=== PATIENT | female | born 1985 | race Caucasian/White ===

== ENCOUNTER → 2019-10-15 17:17 | Outpatient (CLI) | payer BC, SELFPAY | PROVIDERS: Visit Provider Physician Assistant | DX: N39.0 Urinary tract infection, site not specified (principal); M54.9 Dorsalgia, unspecified | CPT/HCPCS: 87086; 87088; 87186 ==

== ENCOUNTER → 2019-12-16 17:00 | Outpatient (CLI) | payer BC, SELFPAY ==
[2019-12-16 17:43] LABS: Alanine Aminotransferase 29 U/L (12-78); Albumin Level 4.6 g/dl (3.5-5.0); Albumin/Globulin Ratio 1.4 (1.1-1.8); Alkaline Phosphatase 53 U/L (38-126); Anion Gap 12.3 mEq/L (5-15); Aspartate Amino Transferase 38 U/L (14-36); Bilirubin,Total 0.4 mg/dl (0.2-1.3); Blood Urea Nitrogen 13 mg/dl (7-17); Calcium 10.1 mg/dl (8.4-10.2); Carbon Dioxide 27 mmol/L (22.0-30.0); Chloride 104 mmol/L (98-107); Estimated Glomerular Filt Rate 115 ml/min (>60); GFR (African American) 139 ML/MIN (>60); Globulin 3.3 g/dL (1.3-3.2); Glucose 68 mg/dl (74-100); Potassium 4.3 mmoL/L (3.5-5.1); Sodium 139 mmol/L (136-145); Total Protein,Serum 7.9 g/dl (6.3-8.2)
[2019-12-18 05:31] LABS: HIV Screen 4th Generation wRfx Non Reactive (Non Reactive); Hep A Ab, IgM Negative (Negative); Hep A Ab, Total Positive (Negative); Hep B Core Ab, Total Negative (Negative)
[2019-12-18 23:10] LABS: Hep B Surface Ab, Qual Reactive (.); Hepatitis B Surface Antigen Negative (Negative)
[2019-12-29 19:12] LABS: HCV Genotype Charge YES; Hepatitis C Genotype 1a (.)
== END ==
PROVIDERS: Visit Provider Nurse Practitioner Family
DX: N39.0 Urinary tract infection, site not specified (principal); B19.20 Unspecified viral hepatitis C without hepatic coma
CPT/HCPCS: 80053; 86703; 86704; 86706; 86708; 87086; 87340; 87522; 87902; G0432

== ENCOUNTER → 2020-01-03 12:17 | Outpatient (CLI) | payer BC, SELFPAY ==
[2020-01-03 12:35] LABS: Basophils % 0.6 % (0.1-2.0); Eosinophils % 0.8 % (0.1-12.0); Hematocrit 44.6 % (37.0-47.0); Hemoglobin 15.1 g/dL (12.2-16.2); Lymphocytes # 1.8 K/mm3 (0.7-4.5); Lymphocytes % 36.9 % (10-50); Mean Corpuscular HGB Conc 33.8 g/dL (31.8-35.4); Mean Corpuscular Hemoglobin 31.9 pg (27.0-31.2); Mean Corpuscular Volume 94.5 fl (81-99); Mean Platelet Volume 8.2 fl (7.4-10.4); Monocytes # 0.3 K/mm3 (0.1-1.0); Monocytes % 5.7 % (1.7-9.3); Neutrophils # 2.7 K/mm3 (1.8-7.8); Neutrophils % 56.1 % (37.0-80.0); Platelet Count 240 K/mm3 (142-424); Red Blood Count 4.72 M/mm3 (4.20-5.40); Red Cell Distribution Width 12.8 % (11.5-17.5); White Blood Count 4.9 K/mm3 (4.8-10.8)
[2020-01-03 12:36] LABS: Urine Pregnancy, HCG Qual. Negative (Negative)
[2020-01-03 12:43] LABS: Prothrombin Time 10.4 seconds (9.4-11.8)
== END ==
PROVIDERS: Visit Provider Nurse Practitioner Family
DX: B19.20 Unspecified viral hepatitis C without hepatic coma (principal)
CPT/HCPCS: 36415; 81025; 85025; 85610

== ENCOUNTER → 2020-01-16 16:18 | Outpatient (CLI) | payer BC, SELFPAY | PROVIDERS: Visit Provider Physician Assistant | DX: R30.9 Painful micturition, unspecified (principal) | CPT/HCPCS: 87086; 87088; 87186 ==

== ENCOUNTER → 2020-01-28 14:06 | Outpatient (CLI) | payer BC, SELFPAY | PROVIDERS: Visit Provider Urology | DX: N39.0 Urinary tract infection, site not specified (principal) | CPT/HCPCS: 87086 ==

== ENCOUNTER → 2020-03-05 14:35 | Outpatient (CLI) | payer BC, SELFPAY ==
[2020-03-05 14:48] LABS: HCG Qualitative, Serum Positive (Negative)
== END ==
PROVIDERS: Visit Provider Nurse Practitioner Family
DX: N92.6 Irregular menstruation, unspecified (principal); R53.83 Other fatigue
CPT/HCPCS: 84703

== ENCOUNTER → 2020-03-06 12:17 | Outpatient (CLI) | payer BC, SELFPAY ==
[2020-03-06 14:01] LABS: HCG,Quantitative 58 mIU/ml (0-5.42)
== END ==
PROVIDERS: Visit Provider Obstetrics & Gynecology
DX: Z32.00 Encounter for pregnancy test, result unknown (principal)
CPT/HCPCS: 36415; 84702

== ENCOUNTER 2020-03-23 16:04 | Emergency (ER) | payer BC, SELFPAY ==
[2020-03-23 16:20] VITALS: BP 123/70; PULSE 73; RESP 18; TEMP 37.3; O2SAT 98; BMI 25.8
[2020-03-23 16:31] VITALS: BMI 25.8
--- NOTE | 2020-03-23 16:36 | HMH.EDPREG ---
ED Disposition Clinical Impression: Vaginal bleeding Disposition: Home, Self-Care Condition on Discharge: Good Instructions: DI for Vaginal Bleeding Additional Instructions: Please follow-up on Monday for serum hCG outpatient. If this continues or worsens please return to the emergency department. Otherwise, please make an appointment with [facility]. Referrals: Aravind Ren MD [Primary Care Provider] - - Critical Care Critical Care Time: No Attestation: On 03/23/20, the high probability of a clinically significant, sudden or life threatening deterioration of the following system(s) required my full and direct attention, intervention and personal management. The time I documented below is in addition to time spent performing reported procedures but includes the following listed in this critical care notation. Medical Decision Making - Medical Records Medical records reviewed: Yes: I reviewed the patient's medical records. - Naldo Inquiry Pt receiving controlled substance: No - Lab Data Lab results reviewed: Yes: I reviewed the patient's lab results. Orders (Tests/Meds): ORDERS Category Date Time Status Complete Blood Count Auto Diff Stat Lab 03/23/20 16:31 Ordered Comprehensive Metabolic Panel Stat Lab 03/23/20 16:31 Ordered HCG,Quantitative Stat Lab 03/23/20 16:31 Ordered Urinalysis and Microscopic Stat Lab 03/23/20 16:31 Ordered Urine , HCG Qual. Stat Lab 03/23/20 16:31 Ordered HPI - General Chief complaint: Vaginal Bleeding Stated complaint: 4 wk preg with bleeding,little cramping Time Seen by Provider: 03/23/20 16:36 - History of Present Illness HPI Narrative: 35-year-old female presents a approximately at 4 weeks with some vaginal spotting. She states this started today and she has not even had to use a pad. She states that it just light and she was just worried and that is why she presented here to the ED. She states that she has absolutely no abdominal pain or suprapubic abdominal pain. And she denies any other acute symptoms. She has a healthy 16-year-old child at home.Patient denies any recent cough or shortness of breath, patient denies any sore throat or headache, patient denies any loss of taste or smell, patient denies any malaise or fatigue, patient denies any abdominal pain nausea vomiting or diarrhea. - Related Data Home Medications Medication Instructions Recorded Confirmed buprenorphine 8 mg-naloxone 2 mg SUBLINGUAL DAILY tab 12/16/19 03/05/20 sublingual tablet Allergies Allergy/AdvReac Type Severity Reaction Status Date / Time No Known Allergies Allergy Verified 03/05/20 10:44 [facility] History - Hepatitis A Screen Attestation statement:: This patient has been screened for Hepatitis A risk factors. I have reviewed the patient's past medical history: Yes Medical History: Reports:: Anxiety, Hepatitis, Seizures Other Medical History: Reports: Anemia, Liver Disease Other Surgeries: Yes: No Previous Surgery, Other Amputation: No Fractures: No Comment: LEEP 2003 AND 2009 - Social History Smoking Status: Current every day smoker Tobacco Type: cigarettes # Packs/Day (cigarettes): 1 #Yrs smoked (if former smoker): 10 Alcohol Intake: never Substance Use Type: former substance user, heroin, methamphetamine Occupational Status: employed - Psychiatric History Pschychiatric History:: Reports:: Anxiety Family Hx:: Cancer, Asthma, Hyperlipidemia, Diabetes, Heart Attack, Hypertension, Kidney Disease ROS Obtained: Yes All systems reviewed & no additional complaints - Constitutional Constitutional: Reports system reviewed and no additional complaints, except as docu - Eyes Eyes: Reports system reviewed and no additional complaints, except as docu - ENT Ears, Nose, Mouth, and Throat: Reports system reviewed and no additional complaints, except as docu - Cardiovascular Cardiovascular: Reports system reviewed and no a
[2020-03-23 16:44] LABS: Microscopic, Urine URINE MICROSCOPIC (MICROSCOPIC)
[2020-03-23 16:47] LABS: Appearance,Urine CLEAR (Clear); Blood, Urine 2+ (Negative); Color,Urine YELLOW (Yellow); Glucose,Urine (UA) Negative (Negative); Ketones,Urine TRACE (Negative); Leukocyte Esterase,Urine Negative (Negative); Nitrate,Urine Negative (Negative); Protein,Urine Negative (Negative); Specific Gravity, Urine >= 1.030 (1.005-1.030); Urobilinogen,Urine 0.2 EU/dl (0.2)
[2020-03-23 16:51] LABS: Bilirubin,Urine Negative (Negative); WBC,Urine Occasional #/hpf (0-3)
[2020-03-23 16:51] LABS: Basophils % 0.3 % (0.1-2.0); Eosinophils # 0.1 K/mm3 (0.0-0.4); Eosinophils % 0.9 % (0.1-12.0); Hematocrit 37.5 % (37.0-47.0); Hemoglobin 13.1 g/dL (12.2-16.2); Lymphocytes # 2.7 K/mm3 (0.7-4.5); Lymphocytes % 39.3 % (10-50); Mean Corpuscular HGB Conc 34.9 g/dL (31.8-35.4); Mean Corpuscular Volume 94.5 fl (81-99); Mean Platelet Volume 8.2 fl (7.4-10.4); Monocytes # 0.4 K/mm3 (0.1-1.0); Monocytes % 6.4 % (1.7-9.3); Neutrophils # 3.6 K/mm3 (1.8-7.8); Neutrophils % 53.2 % (37.0-80.0); Platelet Count 210 K/mm3 (142-424); Red Blood Count 3.97 M/mm3 (4.20-5.40); Red Cell Distribution Width 13.4 % (11.5-17.5); White Blood Count 6.7 K/mm3 (4.8-10.8)
[2020-03-23 16:52] LABS: Bacteria,Urine Trace /lpf; RBC,Urine Occasional #/hpf (0-3)
[2020-03-23 16:52] LABS: Urine Pregnancy, HCG Qual. Positive (Negative)
[2020-03-23 16:56] LABS: Chloride 105 mmol/L (98-107)
[2020-03-23 16:57] LABS: Potassium 3.5 mmoL/L (3.5-5.1); Sodium 138 mmol/L (136-145)
[2020-03-23 16:59] LABS: Alanine Aminotransferase 35 U/L (12-78); Aspartate Amino Transferase 37 U/L (14-36); Blood Urea Nitrogen 14 mg/dl (7-17); Creatinine Clearance Estimated 182 mL/min (50-200); Estimated Glomerular Filt Rate 141 ml/min (>60); GFR (African American) 171 ML/MIN (>60)
[2020-03-23 17:00] LABS: Albumin/Globulin Ratio 1.3 (1.1-1.8); Alkaline Phosphatase 46 U/L (38-126); Anion Gap 10.5 mEq/L (5-15); Bilirubin,Total 0.5 mg/dl (0.2-1.3); Calcium 8.9 mg/dl (8.4-10.2); Carbon Dioxide 26 mmol/L (22.0-30.0); Globulin 3.1 g/dL (1.3-3.2); Glucose 117 mg/dl (74-100); Total Protein,Serum 7.1 g/dl (6.3-8.2)
[2020-03-23 17:17] LABS: HCG,Quantitative 1395 mIU/ml (0-5.42)
[2020-03-23 17:36] VITALS: BP 123/85; PULSE 80; RESP 20; TEMP 36.8; O2SAT 98
== END 2020-03-23 17:37 | disposition home or self-care (01) ==
PROVIDERS: Emergency Provider Family Medicine; PCP Emergency Medicine
DX: O20.8 Other hemorrhage in early pregnancy (principal); Z3A.01 Less than 8 weeks gestation of pregnancy; B19.20 Unspecified viral hepatitis C without hepatic coma; F31.9 Bipolar disorder, unspecified; F17.210 Nicotine dependence, cigarettes, uncomplicated
CPT/HCPCS: 80053; 81001; 81025; 84702; 85025; 99282

== ENCOUNTER → 2020-03-25 10:18 | Outpatient (CLI) | payer BC, SELFPAY ==
[2020-03-25 11:50] LABS: HCG,Quantitative 1641 mIU/ml (0-5.42)
== END ==
PROVIDERS: PCP Emergency Medicine; Visit Provider Family Medicine
DX: O02.1 Missed abortion (principal)
CPT/HCPCS: 36415; 84702

== ENCOUNTER → 2020-03-30 15:06 | Outpatient (CLI) | payer BC, SELFPAY ==
[2020-03-30 16:34] LABS: HCG,Quantitative 1444 mIU/ml (0-5.42)
== END ==
PROVIDERS: Visit Provider Obstetrics & Gynecology
DX: Z32.00 Encounter for pregnancy test, result unknown (principal)
CPT/HCPCS: 36415; 84702

== ENCOUNTER → 2020-04-03 11:28 | Outpatient (CLI) | payer BC, SELFPAY ==
[2020-04-03 13:28] LABS: HCG,Quantitative 1430 mIU/ml (0-5.42)
== END ==
PROVIDERS: Visit Provider Obstetrics & Gynecology
DX: O20.0 Threatened abortion (principal)
CPT/HCPCS: 36415; 84702

== ENCOUNTER → 2020-04-06 12:43 | Outpatient (CLI) | payer BC, SELFPAY ==
--- NOTE | 2020-04-06 12:43 | US_ITS ---
PROCEDURE: US TRANSVAGINAL CLINICAL INDICATION: US T/V-f/u on miscarriage, heavy bleeding COMPARISON: No exams were available for comparison FINDINGS: UTERUS: 8cm x 5cmx 4cm with a combined endometrial thickness of 2.6mm LEFT OVARY: [id number] with a volume of 6.8ml. RIGHT OVARY: [id number] with a volume of 8.7ml. There is no evidence of retained products of conception. No cul-de-sac fluid evident. IMPRESSION: Unremarkable pelvic ultrasound Dictated by: Nitin Doty MD 04/06/2020 13:57 Electronically signed by Nitin Doty MD in [facility] 04/06/2020 13:57
== END ==
PROVIDERS: PCP Emergency Medicine; Visit Provider Obstetrics & Gynecology
DX: N93.9 Abnormal uterine and vaginal bleeding, unspecified (principal); O02.1 Missed abortion
CPT/HCPCS: 76830

== ENCOUNTER → 2020-04-07 09:45 | Outpatient (CLI) | payer BC, SELFPAY ==
[2020-04-07 10:04] LABS: Basophils % 0.3 % (0.1-2.0); Eosinophils # 0.1 K/mm3 (0.0-0.4); Eosinophils % 1.5 % (0.1-12.0); Hematocrit 41.2 % (37.0-47.0); Hemoglobin 14.2 g/dL (12.2-16.2); Lymphocytes # 2.5 K/mm3 (0.7-4.5); Lymphocytes % 46.8 % (10-50); Mean Corpuscular HGB Conc 34.5 g/dL (31.8-35.4); Mean Corpuscular Hemoglobin 33.5 pg (27.0-31.2); Mean Platelet Volume 8.2 fl (7.4-10.4); Monocytes # 0.4 K/mm3 (0.1-1.0); Monocytes % 7.2 % (1.7-9.3); Neutrophils # 2.3 K/mm3 (1.8-7.8); Neutrophils % 44.1 % (37.0-80.0); Platelet Count 218 K/mm3 (142-424); Red Blood Count 4.25 M/mm3 (4.20-5.40); Red Cell Distribution Width 13.4 % (11.5-17.5); White Blood Count 5.3 K/mm3 (4.8-10.8)
[2020-04-07 10:14] LABS: Alanine Aminotransferase 30 U/L (12-78); Albumin Level 4.2 g/dl (3.5-5.0); Albumin/Globulin Ratio 1.2 (1.1-1.8); Alkaline Phosphatase 61 U/L (38-126); Aspartate Amino Transferase 33 U/L (14-36); Bilirubin,Total 0.6 mg/dl (0.2-1.3); Blood Urea Nitrogen 15 mg/dl (7-17); Calcium 9.2 mg/dl (8.4-10.2); Carbon Dioxide 28 mmol/L (22.0-30.0); Chloride 106 mmol/L (98-107); Estimated Glomerular Filt Rate 114 ml/min (>60); GFR (African American) 138 ML/MIN (>60); Globulin 3.4 g/dL (1.3-3.2); Glucose 92 mg/dl (74-100); Sodium 141 mmol/L (136-145); Total Protein,Serum 7.6 g/dl (6.3-8.2)
[2020-04-07 10:31] LABS: HCG,Quantitative 83 mIU/ml (0-5.42)
== END ==
PROVIDERS: Visit Provider Obstetrics & Gynecology
DX: O02.1 Missed abortion (principal)
CPT/HCPCS: 36415; 80053; 84702; 85025

== ENCOUNTER → 2020-05-01 17:01 | Outpatient (CLI) | payer BC, SELFPAY ==
[2020-05-01 19:04] LABS: HCG,Quantitative 80 mIU/ml (0-5.42)
== END ==
PROVIDERS: Visit Provider Obstetrics & Gynecology
DX: Z34.90 Encounter for supervision of normal pregnancy, unspecified, unspecified trimester (principal)
CPT/HCPCS: 36415; 84702

== ENCOUNTER → 2020-05-04 12:05 | Outpatient (CLI) | payer BC, SELFPAY ==
[2020-05-04 13:33] LABS: HCG,Quantitative 290 mIU/ml (0-5.42)
== END ==
PROVIDERS: Visit Provider Obstetrics & Gynecology
DX: Z34.90 Encounter for supervision of normal pregnancy, unspecified, unspecified trimester (principal)
CPT/HCPCS: 36415; 84702

== ENCOUNTER → 2020-05-26 13:40 | Outpatient (CLI) | payer BC, SELFPAY ==
--- NOTE | 2020-05-26 13:47 | US_ITS ---
PROCEDURE: US OB TRANSVAGINAL CLINICAL INDICATION: US OB Dates COMPARISON: US US TRANSVAGINAL from 04/06/2020 FINDINGS: An intrauterine gestational sac is present with a pole with a crown-rump length of 1.14cm correlating to gestational age of 7weeks 3days. heart tones are present with an FHR of 139bpm. Yolk sac is noted. IMPRESSION: Live intrauterine gestation at 7 weeks 3 days Estimated due date by Ultrasound is 01/09/2021 Dictated by: Nitin Doty MD 05/26/2020 16:16 Nitin Doty MD in [facility] 05/26/2020 16:16
== END ==
PROVIDERS: PCP Emergency Medicine; Visit Provider Obstetrics & Gynecology
DX: O26.841 Uterine size-date discrepancy, first trimester (principal)
CPT/HCPCS: 76817

== ENCOUNTER → 2020-05-29 11:13 | Outpatient (CLI) | payer BC, SELFPAY ==
[2020-05-29 12:21] LABS: Basophils % 0.2 % (0.1-2.0); Eosinophils % 0.4 % (0.1-12.0); Hematocrit 41.9 % (37.0-47.0); Hemoglobin 14.7 g/dL (12.2-16.2); Lymphocytes # 2.5 K/mm3 (0.7-4.5); Lymphocytes % 28.1 % (10-50); Mean Corpuscular HGB Conc 35.1 g/dL (31.8-35.4); Mean Corpuscular Hemoglobin 32.9 pg (27.0-31.2); Mean Corpuscular Volume 93.6 fl (81-99); Mean Platelet Volume 8.8 fl (7.4-10.4); Monocytes # 0.5 K/mm3 (0.1-1.0); Monocytes % 5.2 % (1.7-9.3); Neutrophils # 5.9 K/mm3 (1.8-7.8); Neutrophils % 66.1 % (37.0-80.0); Platelet Count 235 K/mm3 (142-424); Red Blood Count 4.47 M/mm3 (4.20-5.40); Red Cell Distribution Width 12.8 % (11.5-17.5); White Blood Count 8.9 K/mm3 (4.8-10.8)
[2020-05-29 17:54] LABS: Benzodiazepines Screen,Urine Negative ng/ml (<200)
[2020-05-29 17:55] LABS: Amphetamine/Metha Screen,Urine Negative ng/ml (<1000); Barbiturates Screen,Urine Negative ng/ml (<200)
[2020-05-29 17:56] LABS: Cannabinoid Screen,Urine Negative ng/ml (<50)
[2020-05-29 17:57] LABS: Cocaine Screen,Urine Negative ng/ml (<300); Methadone Screen,Urine Negative ng/ml (<300)
[2020-05-29 17:58] LABS: Opiate Screen,Urine Negative ng/ml (<300)
[2020-05-29 17:59] LABS: Phencyclidine Screen,Urine Negative ng/ml (<25)
[2020-05-30 05:25] LABS: HIV Screen 4th Generation wRfx Non Reactive (Non Reactive)
[2020-05-30 09:24] LABS: Hepatitis B Surface Antigen Negative (Negative); Hepatitis C Antibody >11.0 s/co ratio (0.0-0.9); Rubella Antibodies, IgG 4.28 index (Immune >0.99)
[2020-05-30 10:48] LABS: Rapid Plasma Reagin Ab Titer Non Reactive (NonRea<1:1)
== END ==
PROVIDERS: Visit Provider Obstetrics & Gynecology
DX: Z34.90 Encounter for supervision of normal pregnancy, unspecified, unspecified trimester (principal)
CPT/HCPCS: 36415; 80305; 80348; 85025; 86592; 86703; 86762; 86850; 87340; 87380; G0432

== ENCOUNTER → 2020-07-06 11:18 | Outpatient (CLI) | payer BC, SELFPAY ==
[2020-07-07 13:48] LABS: Covid-19 Nasal PCR Sendout Lex Not Detected
== END ==
PROVIDERS: PCP Physician Assistant; Visit Provider Physician Assistant
DX: Z03.818 Encounter for observation for suspected exposure to other biological agents ruled out (principal)
CPT/HCPCS: U0004

== ENCOUNTER → 2020-08-25 12:16 | Outpatient (CLI) | payer BC, SELFPAY ==
--- NOTE | 2020-08-25 12:16 | US_ITS ---
PROCEDURE: US OB /MATERNAL DETAIL CLINICAL INDICATION: US OB Complete Anatomy exam COMPARISON: US US OB TRANSVAGINAL from 05/26/2020 FINDINGS: There is a single live fetus which is in cephalic presentation. heart and body motion is noted. The cervix is closed and measures 3 cm. The placenta is anterior and grade 1. Complete survey performed and was unremarkable on the submitted images as in PACS. No discrete anomalies identified on survey imaging by technologist. Active fetus. Three-vessel cord with satisfactory umbilical cord insertion. 4- chamber heart noted. Survey of brain & ventricles Unremarkable. Face and neck survey unremarkable. Diaphragm and chest views unremarkable. Abdomen: Both kidneys noted and unremarkable. Stomach noted and satisfactory. Spine: Survey of the spine satisfactory with no anomalies identified nor imaged. Both arms and legs noted. Amniotic Fluid: Adequate. Maternal adnexa: No significant findings. Measurements: Average ultrasound age 20weeks 5days. Gestational Age 20weeks 5days Estimated due date by ultrasound age 0401/07/2021. Estimated weight 365g BPD = 21weeks OFD = 20 weeks 5 days HC = 20weeks 1day AC = 21weeks FL = 20weeks 3days Growth Percentile= 55% Heart Rate = 133bpm Cerebellum = 20weeks 4days Humerus = 20weeks 4days HC/AC is 1.11 CI is 0.8 FL/BPD is 0.67 FL/AC is 0.21 IMPRESSION: Live IUP at 20 weeks 5 days. No obvious anomalies. Please see above for detail Dictated by: Nitin Doty MD 08/25/2020 18:03 Nitin Doty MD in [facility] 08/25/2020 18:03
== END ==
PROVIDERS: PCP Emergency Medicine; Visit Provider Obstetrics & Gynecology
DX: Z36.0 Encounter for antenatal screening for chromosomal anomalies (principal)
CPT/HCPCS: 76811

== ENCOUNTER → 2020-09-24 08:54 | Outpatient (CLI) | payer BC, SELFPAY ==
[2020-09-24 10:03] LABS: Glucose,Fasting 82 mg/dl (74-100)
[2020-11-09 14:58] LABS: Glucose 1 Hour 126 mg/dL (74-100)
== END ==
PROVIDERS: Visit Provider Obstetrics & Gynecology
DX: Z34.90 Encounter for supervision of normal pregnancy, unspecified, unspecified trimester (principal)
CPT/HCPCS: 36415; 82951

== ENCOUNTER → 2020-12-02 15:02 | Outpatient (CLI) | payer BC, SELFPAY ==
--- NOTE | 2020-12-02 15:02 | US_ITS ---
PROCEDURE: US OB FOLLOW UP CLINICAL INDICATION: US OB- Growth APOLINAR- SGA COMPARISON: US US OB /MATERNAL DETAIL from 08/25/2020 FINDINGS: There is a single live fetus which is in cephalic presentation. The placenta is anterior and grade 1. APOLINAR is normal at 14 cm. The cervix is closed at 3.9 cm. Measurements: Average ultrasound age 34weeks 6days. Gestational Age 34weeks 6days Estimated due date by ultrasound age 0401/07/2021. Estimated weight 2,457g BPD = 35weeks 4days OFD = HC = 34weeks 4days AC = 34weeks 3days FL = 34weeks 4days Growth Percentile= 44% Heart Rate = 119bpm Cerebellum = Humerus = HC/AC is 1.02 CI is 0.82 FL/BPD is 0.76 FL/AC is 0.22 IMPRESSION: Live IUP in cephalic presentation with an average ultrasound age of 34 weeks 6 days. Please see above for detail. Normal APOLINAR of 14 cm. No evidence of IUGR Dictated by: Nitin Doty MD 12/02/2020 18:15 Nitin Doty MD in [facility] 12/02/2020 18:15
== END ==
PROVIDERS: PCP Emergency Medicine; Visit Provider Obstetrics & Gynecology
DX: O36.5990 Maternal care for other known or suspected poor fetal growth, unspecified trimester, not applicable or unspecified (principal)
CPT/HCPCS: 76816

== ENCOUNTER → 2020-12-10 17:01 | Outpatient (CLI) | payer BC, SELFPAY | PROVIDERS: Visit Provider Obstetrics & Gynecology | DX: Z34.90 Encounter for supervision of normal pregnancy, unspecified, unspecified trimester (principal) | CPT/HCPCS: 86403 ==

== ENCOUNTER → 2020-12-31 09:02 | Outpatient (CLI) | payer BC, SELFPAY | PROVIDERS: PCP Emergency Medicine; Visit Provider Obstetrics & Gynecology | DX: Z01.812 Encounter for preprocedural laboratory examination (principal); Z20.822 Contact with and (suspected) exposure to COVID-19; U07.1 COVID-19 | CPT/HCPCS: U0003 ==

== ENCOUNTER 2021-01-01 04:49 | Inpatient (IN) | payer BC, SELFPAY ==
[2021-01-01 04:59] VITALS: BMI 30.2
[2021-01-01 05:50] VITALS: BP 111/59; PULSE 57; RESP 18
[2021-01-01 05:56] LABS: Microscopic, Urine URINE MICROSCOPIC (MICROSCOPIC)
[2021-01-01 06:02] LABS: Basophils % 0.2 % (0.1-2.0); Eosinophils % 0.6 % (0.1-12.0); Hematocrit 34.2 % (37.0-47.0); Hemoglobin 11.8 g/dL (12.2-16.2); Lymphocytes # 2.4 K/mm3 (0.7-4.5); Lymphocytes % 33.7 % (10-50); Mean Corpuscular HGB Conc 34.4 g/dL (31.8-35.4); Mean Corpuscular Hemoglobin 31.9 pg (27.0-31.2); Mean Corpuscular Volume 92.8 fl (81-99); Mean Platelet Volume 9.3 fl (7.4-10.4); Monocytes # 0.6 K/mm3 (0.1-1.0); Monocytes % 8.2 % (1.7-9.3); Neutrophils % 57.4 % (37.0-80.0); Platelet Count 206 K/mm3 (142-424); Red Blood Count 3.69 M/mm3 (4.20-5.40); Red Cell Distribution Width 13.3 % (11.5-17.5)
[2021-01-01 06:06] LABS: Appearance,Urine CLEAR (Clear); Bilirubin,Urine Negative (Negative); Blood, Urine TRACE-I (Negative); Color,Urine YELLOW (Yellow); Glucose,Urine (UA) Negative (Negative); Ketones,Urine Negative (Negative); Leukocyte Esterase,Urine 1+ (Negative); Nitrate,Urine Negative (Negative); PH,Urine 6.5 (5.0-8.5); Protein,Urine Negative (Negative); Urobilinogen,Urine 0.2 EU/dl (0.2)
[2021-01-01 06:18] LABS: Amphetamine/Metha Screen,Urine Negative ng/ml (<1000); Benzodiazepines Screen,Urine Negative ng/ml (<200)
[2021-01-01 06:19] LABS: Barbiturates Screen,Urine Negative ng/ml (<200); Cannabinoid Screen,Urine Negative ng/ml (<50)
[2021-01-01 06:20] LABS: Cocaine Screen,Urine Negative ng/ml (<300)
[2021-01-01 06:21] LABS: Methadone Screen,Urine Negative ng/ml (<300); Opiate Screen,Urine Negative ng/ml (<300)
[2021-01-01 06:22] LABS: Phencyclidine Screen,Urine Negative ng/ml (<25)
[2021-01-01 06:47] LABS: Bacteria,Urine 1+ /lpf; RBC,Urine Occasional #/hpf (0-3)
[2021-01-01 08:39] VITALS: BP 93/50; PULSE 53; RESP 18; TEMP 36.9; O2SAT 99
--- NOTE | 2021-01-01 11:24 | HMH.ANESCL ---
[facility] Anesthesia Checklist - Patient Identification Patient Identification: Arm Band - Structural Data Admitted From: Inpatient Planned Operative Procedure/s: Labor Epidural Consent for Planned Operative Procedure(s) Verified: Yes Verified Documents: Surgical Consent, History and Physical - NPO Status Verified Time NPO: 00:00 - Additional verifications Anesthesia Reactions: No - Airway Assessment C-Spine Mobility Assessed: Yes TMJ Mobility Assessed: Yes Dentition: Good Dentition - Neurological Assessment Level of Consciousness: Awake, Alert - Anesthesia Plan Anesthesia Risk discussed: Yes Anesthesia Plan: Verified ASA Class: II Anesthesia Type: Epidural [facility] History I have reviewed the patient's past medical history: Yes Medical History: Reports:: Anxiety, Hepatitis, Seizures Denies:: Diabetes Mellitus Type 1, Diabetes Mellitus Type 2 *Have you ever received a pneumonia vaccine?: No *Have you received a flu vaccine this season?: No Other Medical History: Reports: Anemia, Liver Disease Anesthesia experience/problems:: nac Other Surgeries: Yes: No Previous Surgery, Other. No: Amputation: No Fractures: No - *Social History Smoking Status: Former smoker Tobacco Type: cigarettes # Packs/Day (cigarettes): 1 #Yrs smoked (if former smoker): 10 Alcohol Intake: never Substance Use Type: former substance user *Occupational Status:: employed *Travel in the last 8 weeks: None - Psychiatric History Pschychiatric History:: Reports:: Anxiety Family Hx:: Cancer, Asthma, Hyperlipidemia, Diabetes, Heart Attack, Hypertension, Kidney Disease Para: 2
[2021-01-01 12:12] VITALS: BP 98/56; PULSE 54; RESP 17; TEMP 36.5
--- NOTE | 2021-01-01 12:49 | HMH.OBAPHP ---
OB - H&P: HPI Antepartum - History of Present Illness Chief complaint: induction of labor History of present illness: 35 yo @ 38 6/7 scheduled induction of labor for oligohydramnios irregular contractions; denies leakage of fluid or vaginal bleeding normal movement complicated by hepatitis C and chronic subutex maintenance Preadmission testing postitive covid 19 nasal swab, but she is not currently sick and is unaware of any exposure and/or illness - History of Present care: good care [facility] History I have reviewed the patient's past medical history: Yes Medical History: Reports:: Anxiety, Hepatitis, Seizures Denies:: Diabetes Mellitus Type 1, Diabetes Mellitus Type 2 *Have you ever received a pneumonia vaccine?: No *Have you received a flu vaccine this season?: No Other Medical History: Reports: Anemia, Liver Disease Anesthesia experience/problems:: nac Other Surgeries: Yes: No Previous Surgery, Other. No: Amputation: No Fractures: No - *Social History Smoking Status: Former smoker Tobacco Type: cigarettes # Packs/Day (cigarettes): 1 #Yrs smoked (if former smoker): 10 Alcohol Intake: never Substance Use Type: former substance user *Occupational Status:: employed *Travel in the last 8 weeks: None - Psychiatric History Pschychiatric History:: Reports:: Anxiety Family Hx:: Cancer, Asthma, Hyperlipidemia, Diabetes, Heart Attack, Hypertension, Kidney Disease Para: 2 Review of Systems - Review of Systems Review of systems:: pertinent systems reviewed and negative unless documented below - Constitutional Denies chills, Denies fever(s) - *Respiratory Denies cough, Denies shortness of breath - *Genitourinary Denies abnormal vaginal bleeding Meds Home Medications Medication Instructions Recorded Confirmed Type Pnv No.95/Ferrous Fum/Folic AC 1 each PO DAILY 01/01/21 01/01/21 History [ Caplet] buprenorphine HCL [Buprenorphine 16 mg PO DAILY 01/01/21 01/01/21 History HCl] Allergies Allergy/AdvReac Type Severity Reaction Status Date / Time No Known Allergies Allergy Verified 12/29/20 11:02 OB - H&P: Exam - Physical Exam Vital signs: Temp Pulse Resp BP Pulse Ox 97.7 F 54 L 17 98/56 L 99 01/01/21 12:12 01/01/21 12:12 01/01/21 12:12 01/01/21 12:12 01/01/21 08:39 - Constitutional no acute distress - Routine HEENT Exam Head: Present: normocephalic, atraumatic Eye: Absent: conjunctival icterus ENT: Present: mucous membranes moist - Routine Neck Exam Present: supple - Routine Chest/Breast/Axilla Exam Chest wall: Absent: tenderness - Routine Respiratory Exam Present: CTA bilaterally. Absent: respiratory distress - Routine Cardiovascular Exam Present: RRR - Routine Abdominal Exam Present: soft. Absent: tenderness, distended - Routine Exam Comments: cervix 3/80/-1 - Routine Extremities Exam Absent: edema - Routine Back/Spine/Pelvis Exam Back/Spine: Absent: CVA tenderness - Routine Skin Exam Absent: rash - Routine Neurological Exam Present: alert, oriented X3 - Routine Psychiatric Exam Present: normal affect OB - Results - Labs Labs: Short CBC 01/01/21 Range/Units 05:25 WBC 7.0 (4.8-10.8) K/mm3 Hgb 11.8 L (12.2-16.2) g/dL Hct 34.2 L (37.0-47.0) % Plt Count 206 (142-424) K/mm3 Urine 01/01/21 Range/Units 05:25 Urine Color Yellow (Yellow) Urine Appearance Clear (Clear) Urine pH 6.5 (5.0-8.5) Ur Specific [place] 1.020 (1.005-1.030) Urine Protein Negative (Negative) Urine Glucose (UA) Negative (Negative) OB - A/P Antepartum (1) 38 weeks gestation of Status: Acute (2) Oligohydramnios Status: Acute (3) complicated by subutex maintenance, antepartum Status: Acute (4) Hepatitis C Status: Acute (5) COVID-19 affecting in third trimester Status: Acute - A
--- NOTE | 2021-01-01 16:40 | HMH.DN ---
- Delivery Note Delivery Date:: 01/01/21 Delivery Time:: 15:40 Anesthesia Type: Epidural Was labor medically induced?: Yes Gestational age (weeks): 38 Infant delivered prior to 39 weeks?: Yes Justification for early elective delivery:: Oligohydraminos Gender: Male at 1 minute: 8 at 5 minutes: 9 Delivery Procedure:: Spontaneous vaginal delivery of liveborn male over intact perineum. Delivery uncomplicated No nuchal cord; no shoulder dystocia with delivery Infant placed in DAWIT with mother immediately after umbilical cord clamped/cut, with standard nursing assessment performed Infant Apgars: 8 & 9 Placenta spontaneously expressed and examined; noted to be complete/intact. Vulva, vagina, and cervix inspected; bilateral periurethral lacerations repaired for hemostasis EBL: 300 cc All sponge/needle/instrument counts correct at conclusion of procedure Disposition: Mom/baby stable to recovery in LDRP Laceration:: labial Placental Delivery Description: Spontaneous
[2021-01-01 16:49] VITALS: BP 123/62; PULSE 77; RESP 18; TEMP 37.1
[2021-01-01 20:04] VITALS: BP 126/59; PULSE 59; RESP 16; TEMP 37.4; O2SAT 99
[2021-01-02 00:35] VITALS: BP 102/57; PULSE 55; RESP 16; TEMP 36.9; O2SAT 98
[2021-01-02 04:46] VITALS: BP 146/78; PULSE 81; RESP 18; TEMP 36.7; O2SAT 100
[2021-01-02 06:51] LABS: Hematocrit 29.2 % (37.0-47.0); Hemoglobin 10.1 g/dL (12.2-16.2)
--- NOTE | 2021-01-02 09:28 | P.PN_ITS ---
Internal Medicine - PN: Subj *Date: 01/02/21 *Time: 09:28 (This is day #1. The patient is afebrile. Her vital signs are stable. Abdomen soft. Lochia normal. Uterine fundus involuting well. Hemoglobin 10.2 g, but clinically stable. She is Covid positive by testing and is being treated appropriately thereto.. She is known to be hepatitis C positive, and is also continuing on her Subutex. She is breast- feeding. Impression: Stable.) Exam Vital signs and Labs for Last 24 Hours: Temp Pulse Resp BP Pulse Ox 98.0 F 81 18 146/78 H 100 01/02/21 04:46 01/02/21 04:46 01/02/21 04:46 01/02/21 04:46 01/02/21 04:46 Laboratory Results - last 24 hr 01/02/21 06:10: Hgb 10.1 L, Hct 29.2 L I & O for Last 24 hours: Intake & Output 12/30/20 12/31/20 01/01/21 01/02/21 11:59 11:59 11:59 11:59 Weight 187 lb 0.008 oz Microbiology Reports for the Last 24 Hours: Microbiology 01/01/21 05:25 Urine,Clean Catch Urine Culture - Preliminary NO GROWTH AFTER 24 HOURS Assessment and Plan (1) 38 weeks gestation of Status: Resolved Category: Medical Code(s): Z3A.38 - 38 weeks gestation of (2) Oligohydramnios Status: Resolved Category: Medical Code(s): O41.00X0 - Oligohydramnios, unspecified trimester, not applicable or unspecified (3) complicated by subutex maintenance, antepartum Status: Resolved Category: Medical Code(s): O99.320 - Drug use complicating , unspecified trimester; F11.20 - Opioid dependence, uncomplicated (4) Hepatitis C Status: Acute Category: Medical Code(s): B19.20 - Unspecified viral hepatitis C without hepatic coma (5) COVID-19 affecting in third trimester Status: Resolved Category: Medical Code(s): O98.513 - Other viral diseases complicating , third trimester; U07.1 - COVID-19
[2021-01-02 20:08] VITALS: BP 119/59; PULSE 56; RESP 18; TEMP 36.7; O2SAT 97
[2021-01-03 01:30] VITALS: BP 137/64; PULSE 50; RESP 18; TEMP 36.9; O2SAT 99
--- NOTE | 2021-01-03 08:58 | HMH.ACPN2 ---
Internal Medicine - PN: Subj *Date: 01/03/21 *Time: 08:58 (This is day #2. The patient is afebrile. Her vital signs are stable. At times her heart rate has been somewhat low, but she has been clinically stable. Lochia normal. Uterine fundus involuting well. Nursing well. Impression: Stable. Probable discharge tomorrow.) Exam Vital signs and Labs for Last 24 Hours: Temp Pulse Resp BP Pulse Ox 98.5 F 50 L 18 137/64 99 01/03/21 01:30 01/03/21 01:30 01/03/21 01:30 01/03/21 01:30 01/03/21 01:30 I & O for Last 24 hours: Intake & Output 12/31/20 01/01/21 01/02/21 01/03/21 11:59 11:59 11:59 11:59 Weight 187 lb 0.008 oz Microbiology Reports for the Last 24 Hours: Microbiology 01/01/21 05:25 Urine,Clean Catch Urine Culture - Final NO GROWTH AFTER 48 HOURS Assessment and Plan (1) 38 weeks gestation of Status: Resolved Category: Medical Code(s): Z3A.38 - 38 weeks gestation of (2) Oligohydramnios Status: Resolved Category: Medical Code(s): O41.00X0 - Oligohydramnios, unspecified trimester, not applicable or unspecified (3) complicated by subutex maintenance, antepartum Status: Resolved Category: Medical Code(s): O99.320 - Drug use complicating , unspecified trimester; F11.20 - Opioid dependence, uncomplicated (4) Hepatitis C Status: Acute Category: Medical Code(s): B19.20 - Unspecified viral hepatitis C without hepatic coma (5) COVID-19 affecting in third trimester Status: Resolved Category: Medical Code(s): O98.513 - Other viral diseases complicating , third trimester; U07.1 - COVID-19
[2021-01-03 20:05] VITALS: BP 113/63; PULSE 53; RESP 16; TEMP 37.1; O2SAT 99
[2021-01-04 04:55] VITALS: BP 148/71; PULSE 53; RESP 18; TEMP 36.8; O2SAT 100
[2021-01-04 08:07] VITALS: BP 112/56; PULSE 64; RESP 16; TEMP 36.8; O2SAT 97
--- NOTE | 2021-01-04 11:10 | P.DS_ITS ---
General - General Admission date:: 01/01/21 Discharge date: 01/04/21 Hospital Course Hospital Course: IOL at 38 6/7 for oligohydramnios Covid positive at admission, but asymptomatic with no evidence of illness Uncomplicated vaginal delivery course uneventful Discharge delayed until PPD #3 due to infant scoring/withdrawal symptoms related to chronic subutex therapy Discharged home on PPD #3 in stable condition Tolerating regular diet, ambulating and voiding without difficulty Lochia less than menses Rhogam Administration: Not Indicated Objective Vital signs: Temp Pulse Resp BP Pulse Ox 98.3 F 64 16 112/56 L 97 01/04/21 08:07 01/04/21 08:07 01/04/21 08:07 01/04/21 08:07 01/04/21 08:07 Narrative: CONSTITUTIONAL: no acute distress HEENT: mucous membranes moist PULMONARY: breathing unlabored without audible wheezes CV: no tachycardia or visible JVD; normal LE peripheral pulses ABD: soft, NT/ND, no guarding : fundus firm at/below umbilicus SKIN: no visible rash or lesions EXT: 1+ edema LEs NEURO: alert/oriented, no altered mental status PSYCH: appropriate mood and demeanor DS: Diagnosis - Discharge Diagnosis (1) 38 weeks gestation of Status: Resolved (2) Oligohydramnios Status: Resolved (3) complicated by subutex maintenance, antepartum Status: Resolved (4) Hepatitis C Status: Acute (5) COVID-19 affecting in third trimester Status: Resolved Discharge Plan - Patient Discharge Instructions ACTIVITY: Continue current activity DIET: regular diet Additional Instructions: *Nothing in the Vagina for 6 weeks* *No heavy lifting* *No strenuous activity* Patient Instructions: Depression, Hemorrhage, DI for Labor and Delivery, Vaginal , DI for Pre-eclampsia, [facility] Post Discharge Instructions, Preventing the Spread of Coronavirus Discharge Instructions - Follow up Plan Follow up with: Nicole Roy MD [Staff Physician] - (call office on monday to schedule appointment. ) Disposition: Home, Self-Correction Medications: Home Medications Medication Instructions Recorded Confirmed Type Pnv No.95/Ferrous Fum/Folic AC 1 each PO DAILY 01/01/21 01/01/21 History [ Caplet] buprenorphine HCL [Buprenorphine 16 mg PO DAILY 04/16/21 04/16/21 History HCl] Prescriptions/Medication Reconciliation: New Acetaminophen [Acetaminophen 325mg tab] 650 mg PO Q4HP PRN tablet PRN Reason: Mild Pain Ibuprofen [Motrin 400mg tablet] 800 mg PO Q6HP PRN tablet PRN Reason: Mild To Moderate Pain Continued Pnv No.95/Ferrous Fum/Folic AC [ Caplet] 1 each PO DAILY buprenorphine HCL [Buprenorphine HCl] 16 mg PO DAILY - Problem Reconciliation Problems Reviewed?: Yes
--- NOTE | 2021-01-04 15:00 | SW/DCPLANNER ---
A REFERRAL WAS CALLED IN OVER THE WEEKEND TO CENTRAL INTAKE REGARDING THIS MOM THAT IS CURRENTLY ENROLLED IN A SUBSTANCE ABUSE CLINIC..MY TURNING POINT. SHE IS BONDING WELL WITH AND BABY HAS BEEN SCORING BUT REMAINS STABLE ENOUGH TO NOT HAVE TO TRANSFER...WILL FOLLOW UP WITH MOM WHOM IS STAYING HERE AT [facility] TO SEE IF THERE ARE ANY ADDITIONAL SERVICES SHE MAY NEED.. AN ID# WAS [id number] AND AT THIS TIME IT DID NOT MEET CRITERIA FOR INVESTIGATION...
[2021-01-15 17:05] LABS: Buprenorphine Positive
== END 2021-01-04 11:45 | disposition home or self-care (01) | DRG 806 ==
PROVIDERS: Admitting Provider Obstetrics & Gynecology; PCP Emergency Medicine; Visit Provider Obstetrics & Gynecology
DX: O41.03X0 Oligohydramnios, third trimester, not applicable or unspecified (principal); O98.42 Viral hepatitis complicating childbirth; Z37.0 Single live birth; O99.324 Drug use complicating childbirth; Z3A.38 38 weeks gestation of pregnancy; O71.82 Other specified trauma to perineum and vulva; B19.20 Unspecified viral hepatitis C without hepatic coma
CPT/HCPCS: 59409; 59025; 80305; 80348; 81001; 85014; 85018; 85025; 86850; 87086; 94761; C1758; G0283; J0571; U0003